=== PATIENT | female | born 1925 | race Caucasian/White ===

== ENCOUNTER 2017-05-16 11:26 | Inpatient (IN) | payer MEDICARE, OTHER ==
[2017-05-16] MEDS ORDERED: RX INFO: IV CONTRAST WAS GIVEN 1 EACH MISC MISCELLANE PRN (12:02)
[2017-05-16] MEDS ORDERED: SODIUM CHLORIDE 0.9% 1,000 ML IV STA (12:02)
[2017-05-16] MEDS ORDERED: ONDANSETRON 4 MG/2 ML VIAL IVP STA (12:02)
[2017-05-16] MEDS: HYDROmorphone 0.5 MG/0.5 ML SYRINGE IVP STA ×2 (12:18→13:02)
[2017-05-16 12:35] LABS: Basophils % (A) 0 %; CH 28.2; CHCM 32.5; Calcium 9.6 mg/dL (8.4-10.2); Eosinophils # (A) 0.1 k/uL (0-0.7); Eosinophils % (A) 2 %; HDW 2.43; HGB 13.4 gm/dL (11.4-16.0); Luc # (Auto) 0.14; Luc % (Auto) 2; Lymphocytes # (A) 2.8 k/uL (1.0-4.8); Lymphocytes % (A) 37 %; MCH 27.7 pg (25.0-35.0); MCHC 31.9 g/dL (31.0-37.0); MCV 87.1 fL (80.0-100.0); Mean Platelet Volume 8.4; Monocytes # (A) 0.6 k/uL (0-1.0); Monocytes % (A) 7 %; Neutrophils # (A) 4.1 k/uL (1.3-7.7); Neutrophils % (A) 53 %; Potassium 4.3 mmol/L (3.5-5.1); RBC 4.83 m/uL (3.80-5.40); RDW 15.5 % (11.5-15.5); Total Bilirubin 0.3 mg/dL (0.2-1.3); Total Protein 7.2 g/dL (6.3-8.2); WBC 7.8 k/uL (3.8-10.6); WBC (Perox) 7.82
[2017-05-16 12:36] LABS: INR 1.1 (<1.2); Prothrombin Time 10.6 sec (9.0-12.0)
[2017-05-16] MEDS ORDERED: HYDROmorphone 1 MG/ML 1 ML SYRINGE IVP STA (12:48)
[2017-05-16] MEDS ORDERED: LORazepam 2 MG/ML INJ IV STA (12:56)
[2017-05-16 14:30] LABS: Amorphous Sediment,Urine Occasional /hpf; Appearance,Urine Cloudy (Clear); Bacteria,Urine Many /hpf; Bilirubin,Urine Negative (Negative); Glucose,Urine (UA) Negative (Negative); Granular Casts,Urine 17 /lpf (0); Ketones,Urine 1+ (Negative); Leukocyte Esterase,Urine Large (Negative); Nitrite,Urine Positive (Negative); PH, Urine 7.5 (5.0-8.0); Particle Count 86969; Protein,Urine Trace (Negative); Specific Gravity,Urine 1.016 (1.001-1.035); Squamous Epithelial Cell,Urine 1 /hpf (0-4); UA Billing (MACRO vs. MICRO) MICRO; Urobilinogen,Urine <2.0 mg/dL (<2.0); WBC,Urine 101 /hpf (0-5)
--- NOTE | 2017-05-16 14:34 | CT ---
EXAMINATION TYPE: CT abdomen pelvis w con DATE OF EXAM: 05/16/2017 COMPARISON: NONE HISTORY: Abdominal pain CT DLP: 1241.90 mGycm CONTRAST: CT scan of the abdomen and pelvis is performed with Oral Contrast and with IV Contrast, patient injec scooter with 100 ml mL of Omnipaque 300. FINDINGS: LUNG BASES-: No infiltrate. Moderate fixed hiatal hernia. Nonspecific nodule measuring 4 mm right l ower lobe. LIVER/GB: Cholecystectomy clips are in place. No space occupying hepatic lesion. Biliary tree is o f normal caliber. PANCREAS: No inflammation. No distinct mass. SPLEEN: No splenic enlargement. No lesion seen. ADRENALS: No nodule. No thickening. KIDNEYS/BLADDER: No hydronephrosis. No nephrolithiasis. 2.5 cm right mid renal cyst. Urinary bladd er grossly unremarkable. BOWEL: Normal appendix. Normal bowel caliber. No inflammation. GENITAL ORGANS: Enlarging right ovarian cystic lesion measuring 3.8 cm currently versus 1.7 cm previ ously. Uterus and left ovary are unremarkable. LYMPH NODES: No greater than 1cm abdominal or pelvic lymph nodes are appreciated. AORTA: No significant abnormality. OSSEOUS STRUCTURES: No significant abnormality is seen. OTHER: No significant additional abnormality is seen. IMPRESSION: 1. Moderate fixed hiatal hernia again noted. 2. Stable right ovarian cyst.. 3. Enlarging right ovarian cystic lesion measuring 3.8 cm is nonspecific.
[2017-05-16] MEDS ORDERED: cefTRIAXone IN SWFI 1,000 MG/10 ML SYRINGE IVP STA (15:11)
--- NOTE | 2017-05-16 15:19 | ED ---
Abdominal Pain HPI - General Chief Complaint: Abdominal Pain Stated Complaint: Abd Pain Time Seen by Provider: 05/16/17 11:54 Source: EMS Mode of arrival: EMS Limitations: no limitations - History of Present Illness Initial Comments: This 89-year-old white female presents by EMS from the [facility] with her 2 daughters. She apparently was complaining of severe abdominal pain this morning. She also apparently had some right flank pain. The patient is demented and we're unable to get any history from her. All history obtained per [facility] records and daughters. She apparently was in significant distress. There is no known fevers. There is no known nausea vomiting or diarrhea. She apparently has never had similar symptoms in the past. She normally is incontinent of urine. History is somewhat limited due to the dementia. - Related Data Home Medications Medication Instructions Recorded Confirmed Benazepril HCl [Lotensin] 40 mg PO DAILY 01/16/15 05/16/17 amLODIPine [Norvasc] 5 mg PO DAILY 01/16/15 05/16/17 Acetaminophen Tab [Tylenol Tab] 650 mg PO Q8H PRN 11/16/15 05/16/17 Bisacodyl [Dulcolax] 10 mg RECTAL DAILY PRN 11/16/15 05/16/17 Famotidine [Pepcid] 20 mg PO DAILY@1700 11/16/15 05/16/17 LORazepam [Ativan] 0.25 mg PO BID 11/16/15 05/16/17 Loratadine [Claritin] 10 mg PO DAILY PRN 11/16/15 05/16/17 Metoprolol Succinate [Toprol XL] 12.5 mg PO DAILY 11/16/15 05/16/17 Albuterol Nebulized [Ventolin 2.5 mg INHALATION Q6H PRN 05/16/17 05/16/17 Nebulized] Ammonium Lactate Cream [Lac-Hydrin 1 applic TOPICAL DAILY PRN 05/16/17 05/16/17 12% Cream] Aspirin EC [Ecotrin Low Dose] 81 mg PO DAILY@1700 05/16/17 05/16/17 Ferrous Sulfate [Feosol] 325 mg PO DAILY@1700 05/16/17 05/16/17 LORazepam [Ativan] 0.5 mg PO Q8H PRN 05/16/17 05/16/17 Levothyroxine Sodium [Synthroid] 50 mcg PO DAILY 05/16/17 05/16/17 Loperamide HCl [Imodium A-D] 4 mg PO BID PRN 05/16/17 05/16/17 Meloxicam [Mobic] 15 mg PO HS 05/16/17 05/16/17 Na Phos,M-B/Na Phos,Di-Ba [Fleet 133 ml RECTAL DAILY PRN 05/16/17 05/16/17 Adult] QUEtiapine [SEROquel] 50 mg PO TID 05/16/17 05/16/17 Sennosides [Senna] 8.6 mg PO BID 05/16/17 05/16/17 guaiFENesin [guaiFENesin Oral 200 mg PO Q4H PRN 05/16/17 05/16/17 Solution] Allergies Allergy/AdvReac Type Severity Reaction Status Date / Time No Known Allergies Allergy Verified 05/16/17 11:43 Review of Systems ROS Statement: Those systems with pertinent positive or pertinent negative responses have been documented in the HPI. ROS Other: All systems not noted in ROS Statement are negative. Past Medical History Past Medical History: Hyperlipidemia, Hypertension, Thyroid Disorder History of Any Multi-Drug Resistant Organisms: None Reported Past Surgical History: Cholecystectomy Past Anesthesia/Blood Transfusion Reactions: No Reported Reaction Past Psychological History: No Psychological Hx Reported Smoking Status: Former smoker Past Alcohol Use History: None Reported Past Drug Use History: None Reported - Past Family History Sister(s) Family Medical History: Myocardial Infarction ([place]) Additional Family Medical History / Comment(s): in her 60's of [place] General Exam - General Exam Comments Initial Comments: GENERAL: The patient is well nourished and well hydrated. VITAL SIGNS: Heart rate, blood pressure, respiratory rate reviewed as recorded in nurse's notes. EYES: Pupils are round and reactive. Extraocular movements are intact. No conjunctival / lid redness or swelling. ENT: No external evidence of injury, swelling, or ecchymosis. Airway is patent. Throat is clear. NECK: Nontender. No swelling or evidence of injury. No subcutaneous emphysema. Trachea is midline. No thyroid mass. HEART: Regular rate and rhythm. Good peripheral pulses. LUNGS/CHEST: Breath sounds clear and equal bilaterally. No rales, rhonchi, or wheezes. No ecchymosis, subcutaneous emphysema, or tenderness. ABDOMEN: There is diffuse tenderness noted to the abdomen. There is some slight tenderness noted to the right flank. No palpable masses or organomegaly. No peritoneal signs. No abdominal wall swelling or ecchymosis. EXTREMITIES: No extremity tenderness. Normal muscle tone and function. No thoracolumbar tenderness. NEUROLOGIC: Sensation is grossly intact. Cranial nerve exam reveals face is symmetrical, tongue is midline. Patient is demented. SKIN: No abrasions or ecchymosis is noted. No induration or masses noted. PSYCHIATRIC: Alert and in moderate distress Limitations: no limitations Course Vital Signs 05/16/17 05/16/17 11:27 13:39 Temperature 97.0 F L Pulse Rate 75 88 Respiratory 20 18 Rate Blood Pressure 199/74 180/76 O2 Sat by Pulse 95 90 L Oximetry Medical Decision Making - Medical Decision Making The patient was seen and examined. All diagnostics were reviewed. The patient had an EKG done and shows a normal sinus rhythm at a rate of 85. There is nonspecific ST T-wave changes mostly noted in the lateral leads. The VA intervals 158, QRS duration is 82, and the QTc interval is 335. The patient does receive an IV as well as intravenous Dilaudid for pain. She still quite agitated and receives some Ativan with alleviation of the agitation. The urinalysis came back showing evidence of a urinary tract infection. The laboratory overall is fairly unremarkable. The patient had a computed tomography scan of the abdomen and pelvis was just does show an increasing right ovarian cyst at 3.7 cm but no other acute processes. The patient was having some right flank pain as well. Is felt as though she may have a pyelonephritis as well. She also was having some significant pain and it is felt as though she benefit from admission to the hospital and IV antibiotics. She started on some Rocephin. Case is discussed with internal medicine and they 're agreeable to admission. - Lab Data Result diagrams: 05/16/17 11:49 05/16/17 11:49 Lab Results 05/16/17 05/16/17 05/16/17 Range/Units 11:49 11:49 11:49 WBC 7.8 (3.8-10.6) k/uL RBC 4.83 (3.80-5.40) m/uL Hgb 13.4 (11.4-16.0) gm/dL Hct 42.0 (34.0-46.0) % MCV 87.1 (80.0-100.0) fL MCH 27.7 (25.0-35.0) pg MCHC 31.9 (31.0-37.0) g/dL RDW 15.5 (11.5-15.5) % Plt Count 293 (150-450) k/uL Neutrophils % 53 % Lymphocytes % 37 % Monocytes % 7 % Eosinophils % 2 % Basophils % 0 % Neutrophils # 4.1 (1.3-7.7) k/uL Lymphocytes # 2.8 (1.0-4.8) k/uL Monocytes # 0.6 (0-1.0) k/uL Eosinophils # 0.1 (0-0.7) k/uL Basophils # 0.0 (0-0.2) k/uL PT 10.6 (9.0-12.0) sec INR 1.1 (<1.2) APTT 22.0 (22.0-30.0) sec Sodium 142 (137-145) mmol/L Potassium 4.3 (3.5-5.1) mmol/L Chloride 110 H (98-107) mmol/L Carbon Dioxide 21 L (22-30) mmol/L Anion Gap 11 mmol/L BUN 23 H (7-17) mg/dL Creatinine 1.09 H (0.52-1.04) mg/dL Est GFR (MDRD) Af Amer 57 (>60 ml/min/1.73 sqM) Est GFR (MDRD) Non-Af 47 (>60 ml/min/1.73 sqM) Glucose 96 (74-99) mg/dL Plasma Lactic Acid Les (0.7-2.0) mmol/L Calcium 9.6 (8.4-10.2) mg/dL Total Bilirubin 0.3 (0.2-1.3) mg/dL AST 36 (14-36) U/L ALT 47 (9-52) U/L Alkaline Phosphatase 98 (38-126) U/L Total Protein 7.2 (6.3-8.2) g/dL Albumin 3.9 (3.5-5.0) g/dL Amylase 39 (30-110) U/L Lipase 86 (23-300) U/L Urine Color Urine Appearance (Clear) Urine pH (5.0-8.0) Ur Specific [place] (1.001-1.035) Urine Protein (Negative) Urine Glucose (UA) (Negative) Urine Ketones (Negative) Urine Blood (Negative) Urine Nitrite (Negative) Urine Bilirubin (Negative) Urine Urobilinogen (<2.0) mg/dL Ur Leukocyte Esterase (Negative) Urine WBC (0-5) /hpf Urine WBC Clumps (None) /hpf Ur Squamous Epith Cells (0-4) /hpf Amorphous Sediment (None) /hpf Urine Bacteria (None) /hpf Granular Casts (0) /lpf 05/16/17 05/16/17 Range/Units 12:39 14:15 WBC (3.8-10.6) k/uL RBC (3.80-5.40) m/uL Hgb (11.4-16.0) gm/dL Hct (34.0-46.0) % MCV (80.0-100.0) fL MCH (25.0-35.0) pg MCHC (31.0-37.0) g/dL RDW (11.5-15.5) % Plt Count (150-450) k/uL Neutrophils % % Lymphocytes % % Monocytes % % Eosinophils % % Basophils % % Neutrophils # (1.3-7.7) k/uL Lymphocytes # (1.0-4.8) k/uL Monocytes # (0-1.0) k/uL Eosinophils # (0-0.7) k/uL Basophils # (0-0.2) k/uL PT (9.0-12.0) sec INR (<1.2) APTT (22.0-30.0) sec Sodium (137-145) mmol/L Potassium (3.5-5.1) mmol/L Chloride (98-107) mmol/L Carbon Dioxide (22-30) mmol/L Anion Gap mmol/L BUN (7-17) mg/dL Creatinine (0.52-1.04) mg/dL Est GFR (MDRD) Af Amer (>60 ml/min/1.73 sqM) Est GFR (MDRD) Non-Af (>60 ml/min/1.73 sqM) Glucose (74-99) mg/dL Plasma Lactic Acid Les 1.5 (0.7-2.0) mmol/L Calcium (8.4-10.2) mg/dL Total Bilirubin (0.2-1.3) mg/dL AST (14-36) U/L ALT (9-52) U/L Alkaline Phosphatase (38-126) U/L Total Protein (6.3-8.2) g/dL Albumin (3.5-5.0) g/dL Amylase (30-110) U/L Lipase (23-300) U/L Urine Color Yellow Urine Appearance Cloudy H (Clear) Urine pH 7.5 (5.0-8.0) Ur Specific [place] 1.016 (1.001-1.035) Urine Protein Trace H (Negative) Urine Glucose (UA) Negative (Negative) Urine Ketones 1+ H (Negative) Urine Blood Negative (Negative) Urine Nitrite Positive H (Negative) Urine Bilirubin Negative (Negative) Urine Urobilinogen <2.0 (<2.0) mg/dL Ur Leukocyte Esterase Large H (Negative) Urine WBC 101 H (0-5) /hpf Urine WBC Clumps Occasional H (None) /hpf Ur Squamous Epith Cells 1 (0-4) /hpf Amorphous Sediment Occasional H (None) /hpf Urine Bacteria Many H (None) /hpf Granular Casts 17 (0) /lpf Disposition Clinical Impression: UTI (urinary tract infection), Pyelonephritis, Right flank pain, Abdominal pain , Ovarian cyst, Hypertension, Dementia Disposition: ADMITTED IP TO THIS [facility] Condition: Fair Time of Disposition: 15:22 Decision Date: 05/16/17 Decision Time: 15:22
[2017-05-16] MEDS ORDERED: hydrALAZINE HCL 20 MG/ML 1 ML VIAL IVP STA (15:25)
[2017-05-16] MEDS ORDERED: LORazepam 2 MG/ML INJ IV PRN (15:26)
[2017-05-16] MEDS ORDERED: HYDROmorphone 0.5 MG/0.5 ML SYRINGE IVP PRN (15:26)
[2017-05-16] MEDS ORDERED: ACETAMINOPHEN TAB 325 MG TAB PO PRN (15:26)
[2017-05-16] MEDS ORDERED: ONDANSETRON 4 MG/2 ML VIAL IVP PRN (15:26)
[2017-05-16] MEDS ORDERED: NALOXONE 0.4 MG/ML 1 ML VIAL IV PRN (15:26)
[2017-05-16] MEDS ORDERED: NA PHOS,M-B/NA PHOS,DI-BA 133 ML ENEMA RECTAL PRN (15:30)
[2017-05-16] MEDS ORDERED: LOPERAMIDE 2 MG CAP PO PRN (15:30)
[2017-05-16] MEDS ORDERED: BISACODYL 10 MG SUPP RECTAL PRN (15:30)
[2017-05-16] MEDS ORDERED: guaiFENesin SYRUP 100MG/5ML 200 MG/10 ML CUP PO PRN (15:30)
[2017-05-16] MEDS ORDERED: AMMONIUM LACTATE 12% CREAM 140 GM TUBE TOPICAL PRN (15:30)
[2017-05-16] MEDS ORDERED: ALBUTEROL NEBULIZED 2.5 MG/3 ML INHALATION PRN (15:30)
[2017-05-16] MEDS ORDERED: LORATADINE 10 MG TAB PO PRN (15:30)
[2017-05-16] MEDS: ASPIRIN 81 MG PO SCH (17:26)
[2017-05-16] MEDS: QUEtiapine 50 MG TAB PO SCH ×2 (17:26→22:09)
[2017-05-16] MEDS: FERROUS SULFATE 325 MG TAB PO SCH ×2 (17:26→17:33)
--- NOTE | 2017-05-16 20:39 | HP ---
HISTORY AND PHYSICAL PRESENTING COMPLAINT: Abdominal pain. HISTORY OF PRESENTING COMPLAINT: This is an 89-year-old patient of Dr. Franks, resident of [facility], unable to give much of a history because of underlying dementia. Chronic stable medical conditions include hiatal hernia, hyperlipidemia, hypertension, hypothyroid, emphysema, duodenal ulcer. The patient was [facility] the [facility], somewhat restless, complaining of some abdominal pain. Really cannot get more details. The patient has 2 daughters who just left before I came in. The patient has got a [place] catheter. he patient's UA had come back infected appearing. REVIEW OF SYSTEMS: Cannot be done because of underlying confusion. PAST MEDICAL HISTORY: Dementia, hiatal hernia, hypertension, hyperlipidemia, hypothyroid, emphysema, duodenal ulcer. PAST SURGICAL HISTORY: Cholecystectomy. SOCIAL HISTORY: Resident of [facility]. She requires two-personal transfer to wheelchair. The patient has smoked for 45 years, stopped about 20 to 25 years ago. FAMILY HISTORY: History of myocardial infarction. HOME MEDICATIONS: 1. Guaifenesin 200 mg p.o. every 4 p.r.n. 2. Norvasc 5 mg p.o. daily. 3. Senna 8.6 mg p.o. b.i.d. 4. 50 mg p.o. t.i.d. 5. Fleet Adult p.r.n. 6. Toprol-XL 12.5 p.o. daily. 7. Mobic 50 mg p.o. at bedtime. 8. Claritin 10 mg p.o. daily p.r.n. 9. Imodium 4 mg p.o. b.i.d. p.r.n. 10.Synthroid 50 mcg p.o. daily. 11.Ativan 0.5 p.o. every 8 hours p.r.n. and 0.25 p.o. b.i.d. 12.Iron 325 p.o. daily at 5 p.m. 13.Pepcid 20 mg p.o. daily at 5 p.m. 14.Lotensin 40 mg p.o. daily. 15.Aspirin 81 mg p.o. daily. 16.Lac-Hydrin 12% topical daily p.r.n. 17.Ventolin 2.5 every 6 hours p.r.n. 18.Tylenol p.r.n. ALLERGIES: None. PHYSICAL EXAMINATION: Vital signs on presentation, temperature 97, pulse 75, respiration 20, blood pressure 180/76, pulse ox 85% on room air, repeat 90% on 2 L and then 96% 2 L. GENERAL APPEARANCE: Well-built. Restless in bed. EYES: Pupils equal. Conjunctivae normal. HEENT: Oral cavity dry mucous membrane. NECK: JVD not raised. Mass not palpable. RESPIRATORY: Effort normal. Lungs are clear. CARDIOVASCULAR: 1st and 2nd sounds normal. No edema. ABDOMEN: Mild diffuse some tenderness. No guarding or rigidity. Liver and spleen not palpable. LYMPHATIC: No lymph nodes palpable in neck or axillae. PSYCHIATRY: The patient knows her name but rather delirious. NEUROLOGIC: Pupils equal. No facial asymmetry. Moving all 4 limbs. INVESTIGATIONS: White count 7.8, hemoglobin 10.4, potassium 4.3, BUN 23, creatinine 1.09. UA positive for leukocyte esterase, WBC. CT scan of the abdomen and pelvis unremarkable. ASSESSMENT: 1. Acute urinary tract infection, pyelonephritis is possible, causing acute delirium. 2. Alzheimer's dementia, late onset type. 3. Hiatal hernia. 4. Hyperlipidemia. 5. Hypertension. 6. Hypothyroid. 7. Chronic obstructive pulmonary disease in an ex-smoker. PLAN: Patient started on antibiotic in form of ceftriaxone. Home medications are resumed. Getting IV fluids. No family is at the bedside. Even though the abdomen does not appear to be surgical we will get a surgical opinion to make sure nothing else is brewing. Repeat labs in the morning. MMODL / IJN: [id number] /
--- NOTE | 2017-05-16 21:49 | P.GSCN ---
History of Present Illness Consult date: 05/16/17 Requesting physician: Benton Dang History of present illness: CHIEF COMPLAINT: Abdominal pain. HISTORY OF PRESENT ILLNESS: The patient is 89-year-old female who is brought in by her family members for complaint of severe abdominal pain. At the time of my evaluation, the patient was minimally verbal and disoriented. Much history is obtained via her chart. She had a CT of the abdomen and pelvis demonstrating no bowel obstruction. She also did not report any significant abdominal pain since admission. Again additional history is obtained by her nurse as well. PAST MEDICAL HISTORY: See list. PAST SURGICAL HISTORY: See list. CURRENT MEDICATIONS: See list. ALLERGIES: See list. SOCIAL HISTORY: See list. FAMILY HISTORY: See list. REVIEW OF ORGAN SYSTEMS: CONSTITUTIONAL: No fever or chills. HEENT: No trouble with vision, hearing or nosebleeds. LYMPHATIC: No any lumps and bumps around the neck. ENDOCRINE: Has thyroid disorders. No blood sugar glucose intolerance. RESPIRATORY: No shortness of breath. No dyspnea on exertion. CARDIOVASCULAR: No current history of chest pain with exertion. No palpitations. GASTROINTESTINAL: No reports of diarrhea since admission. GENITOURINARY: Previous history of urinary tract infection. MUSCULOSKELETAL: Has osteoarthritis including pain along the joints. NEUROLOGIC: No seizure disorders or headaches. PSYCHIATRIC: Denies any depression or suicidal ideation. HEMATOLOGIC: Denies any abnormal bleeding or bruising. PHYSICAL EXAMINATION: GENERAL: Well developed who is disoriented and fidgeting in bed. HEENT: No sclera icterus. Extraocular movements grossly intact. Moist buccal mucosa. Head is atraumatic, normocephalic. Hears conversational speech. No nasal drainage. NECK: No rigidity. Range of motion within normal limits. CHEST: Non-labored respirations and equal bilateral excursions. CARDIOVASCULAR: Regular rate and rhythm. Palpable 2+ radial pulses. ABDOMEN: Soft. No peritonitis. MUSCULOSKELETAL: No clubbing, cyanosis. NEUROLOGIC: No focal or lateralizing signs. PSYCH: Oriented to person. Disoriented otherwise. SKIN: Well perfused. Good skin turgor. LABS: Reviewed. STUDIES: CT of the abdomen and pelvis reviewed demonstrating incidental finding of hiatal hernia. No free air. Separately ovarian cyst identified. ASSESSMENT: 1. Generalized abdominal pain. 2. Lower urinary tract infection. 3. Disorientation. 4. Diaphragmatic hiatal hernia, large. PLAN: 1. No acute abdomen or surgical intervention at this time. 2. She has a large hiatal hernia which no acute surgical intervention needed. 3. Treatment of urinary tract infection and advised. Thank you very much for allowing me to participate in the care of your patient. Past Medical History Past Medical History: Dementia, GERD/Reflux, Hyperlipidemia, Hypertension, Thyroid Disorder Additional Past Medical History / Comment(s): past esophagitis,small duodenal ulcer,hiatal hernia, uti, alzheimers disease and insomnia, anxiety History of Any Multi-Drug Resistant Organisms: None Reported Past Surgical History: Cholecystectomy Additional Past Surgical History / Comment(s): egd Past Anesthesia/Blood Transfusion Reactions: No Reported Reaction Smoking Status: Former smoker - Past Family History Father Family Medical History: Myocardial Infarction ([place]) Mother Family Medical History: Diabetes Mellitus Sister(s) Family Medical History: Myocardial Infarction ([place]) Additional Family Medical History / Comment(s): in her 60's of [place] Medications and Allergies Home Medications Medication Instructions Recorded Confirmed Type Benazepril HCl [Lotensin] 40 mg PO DAILY 01/16/15 05/16/17 History amLODIPine [Norvasc] 5 mg PO DAILY 01/16/15 05/16/17 History Acetaminophen Tab [Tylenol Tab] 650 mg PO Q8H PRN 11/16/15 05/16/17 History Bisacodyl [Dulcolax] 10 mg RECTAL DAILY PRN 11/16/15 05/16/17 History Famotidine [Pepcid] 20 mg PO DAILY@1700 11/16/15 05/16/17 History LORazepam [Ativan] 0.25 mg PO BID 11/16/15 05/16/17 History Loratadine [Claritin] 10 mg PO DAILY PRN 11/16/15 05/16/17 History Metoprolol Succinate [Toprol XL] 12.5 mg PO DAILY 11/16/15 05/16/17 History Albuterol Nebulized [Ventolin 2.5 mg INHALATION Q6H PRN 05/16/17 05/16/17 History Nebulized] Ammonium Lactate Cream [Lac-Hydrin 1 applic TOPICAL DAILY PRN 05/16/17 05/16/17 History 12% Cream] Aspirin EC [Ecotrin Low Dose] 81 mg PO DAILY@1700 05/16/17 05/16/17 History Ferrous Sulfate [Feosol] 325 mg PO DAILY@1700 05/16/17 05/16/17 History LORazepam [Ativan] 0.5 mg PO Q8H PRN 05/16/17 05/16/17 History Levothyroxine Sodium [Synthroid] 50 mcg PO DAILY 05/16/17 05/16/17 History Loperamide HCl [Imodium A-D] 4 mg PO BID PRN 05/16/17 05/16/17 History Meloxicam [Mobic] 15 mg PO HS 05/16/17 05/16/17 History Na Phos,M-B/Na Phos,Di-Ba [Fleet 133 ml RECTAL DAILY PRN 05/16/17 05/16/17 History Adult] QUEtiapine [SEROquel] 50 mg PO TID 05/16/17 05/16/17 History Sennosides [Senna] 8.6 mg PO BID 05/16/17 05/16/17 History guaiFENesin [guaiFENesin Oral 200 mg PO Q4H PRN 05/16/17 05/16/17 History Solution] Allergies Allergy/AdvReac Type Severity Reaction Status Date / Time No Known Allergies Allergy Verified 05/16/17 11:43 Surgical - Exam Vital Signs Temp Pulse Resp BP Pulse Ox 97.0 F L 75 20 199/74 95 05/16/17 11:27 05/16/17 11:27 05/16/17 11:27 05/16/17 11:27 05/16/17 11:27 Results - Labs 05/16/17 11:49 05/16/17 11:49 Abnormal Lab Results - Last 24 Hours (Table) 05/16/17 05/16/17 Range/Units 11:49 14:15 Chloride 110 H (98-107) mmol/L Carbon Dioxide 21 L (22-30) mmol/L BUN 23 H (7-17) mg/dL Creatinine 1.09 H (0.52-1.04) mg/dL Urine Appearance Cloudy H (Clear) Urine Protein Trace H (Negative) Urine Ketones 1+ H (Negative) Urine Nitrite Positive H (Negative) Ur Leukocyte Esterase Large H (Negative) Urine WBC 101 H (0-5) /hpf Urine WBC Clumps Occasional H (None) /hpf Amorphous Sediment Occasional H (None) /hpf Urine Bacteria Many H (None) /hpf Diabetes panel 05/16/17 Range/Units 11:49 Sodium 142 (137-145) mmol/L Potassium 4.3 (3.5-5.1) mmol/L Chloride 110 H (98-107) mmol/L Carbon Dioxide 21 L (22-30) mmol/L BUN 23 H (7-17) mg/dL Creatinine 1.09 H (0.52-1.04) mg/dL Glucose 96 (74-99) mg/dL Calcium 9.6 (8.4-10.2) mg/dL AST 36 (14-36) U/L ALT 47 (9-52) U/L Alkaline Phosphatase 98 (38-126) U/L Total Protein 7.2 (6.3-8.2) g/dL Albumin 3.9 (3.5-5.0) g/dL Calcium panel 05/16/17 Range/Units 11:49 Calcium 9.6 (8.4-10.2) mg/dL Albumin 3.9 (3.5-5.0) g/dL Pituitary panel 05/16/17 Range/Units 11:49 Sodium 142 (137-145) mmol/L Potassium 4.3 (3.5-5.1) mmol/L Chloride 110 H (98-107) mmol/L Carbon Dioxide 21 L (22-30) mmol/L BUN 23 H (7-17) mg/dL Creatinine 1.09 H (0.52-1.04) mg/dL Glucose 96 (74-99) mg/dL Calcium 9.6 (8.4-10.2) mg/dL Adrenal panel 05/16/17 Range/Units 11:49 Sodium 142 (137-145) mmol/L Potassium 4.3 (3.5-5.1) mmol/L Chloride 110 H (98-107) mmol/L Carbon Dioxide 21 L (22-30) mmol/L BUN 23 H (7-17) mg/dL Creatinine 1.09 H (0.52-1.04) mg/dL Glucose 96 (74-99) mg/dL Calcium 9.6 (8.4-10.2) mg/dL Total Bilirubin 0.3 (0.2-1.3) mg/dL AST 36 (14-36) U/L ALT 47 (9-52) U/L Alkaline Phosphatase 98 (38-126) U/L Total Protein 7.2 (6.3-8.2) g/dL Albumin 3.9 (3.5-5.0) g/dL Assessment and Plan (1) Abdominal pain Current Visit: Yes Status: Acute Code(s): R10.9 - UNSPECIFIED ABDOMINAL PAIN SNOMED Code(s): 08004438 (2) Hypertension Current Visit: Yes Status: Acute Code(s): I10 - ESSENTIAL (PRIMARY) HYPERTENSION SNOMED Code(s): 26466051 (3) Ovarian cyst Current Visit: Yes Status: Acute Code(s): N83.209 - UNSPECIFIED OVARIAN CYST , UNSPECIFIED SIDE SNOMED Code(s): 82616985 (4) Pyelonephritis Current Visit: Yes Status: Acute Code(s): N12 - TUBULO-INTERSTITIAL NEPHRITIS, NOT SPCF ACUTE OR CHRONIC SNOMED Code(s): 20337383 (5) Urinary tract infection Current Visit: Yes Status: Acute Code(s): N39.0 - URINARY TRACT INFECTION, SITE NOT SPECIFIED SNOMED Code(s): 99161485
[2017-05-16] MEDS: LORazepam 0.5 MG TAB PO SCH (22:08)
[2017-05-16] MEDS: MELOXICAM 7.5 MG TAB PO SCH (22:09)
[2017-05-16] MEDS: SENNOSIDES 8.6 MG TAB PO SCH (22:09)
[2017-05-17] MEDS: LEVOTHYROXINE 50 MCG TAB PO SCH (06:22)
[2017-05-17] MEDS: LISINOPRIL 20 MG TAB PO SCH (07:35)
[2017-05-17] MEDS: LORazepam 0.5 MG TAB PO SCH ×3 (07:35→20:48)
[2017-05-17] MEDS: amLODIPine 5 MG TAB PO SCH (07:35)
[2017-05-17] MEDS: SENNOSIDES 8.6 MG TAB PO SCH ×3 (07:36→20:49)
[2017-05-17] MEDS: METOPROLOL SUCCINATE (ER) 25 MG TAB.ER.24H PO SCH (07:36)
[2017-05-17] MEDS: QUEtiapine 50 MG TAB PO SCH ×4 (07:36→20:49)
[2017-05-17] MEDS: PANTOPRAZOLE 40 MG/10 ML VIAL IV SCH (07:36)
[2017-05-17] MEDS ORDERED: ENOXAPARIN 40 MG/0.4 ML SYRINGE SQ SCH ×2 (09:00)
--- NOTE | 2017-05-17 11:00 | P.PN ---
<Jocelyn Ivoryyolis Thacker - Last Filed: 05/17/17 10:50> Subjective Progress Note Date: 05/17/17 89-year-old female seen and examined at bedside patient appears in no acute distress. Patient is oriented to self only. No family at bedside. Patient is being seen at the request of the attending for an abdominal eval in a patient who presented with severe abdominal pain. At the time of the evaluation this morning patient is not indicating any abdominal discomfort no facial grimacing with palpitation to the abdominal wall. Patient's CAT scan of the abdomen pelvis showed no evidence of a bowel obstruction Objective - Vital Signs Vital signs: Vital Signs Temp 96.7 F L 05/17/17 07:00 Pulse 70 05/17/17 07:00 Resp 18 05/17/17 07:00 BP 124/86 05/17/17 07:00 Pulse Ox 94 L 05/17/17 07:00 Intake & Output 05/16/17 05/17/17 05/17/17 18:59 06:59 18:59 Output Total 125 Balance -125 Weight 78.471 kg Output: Urine 125 Other: Voiding Method Indwelling Catheter Indwelling Catheter # Voids 1 - Exam physical exam 89-year-old female resting in bed is uncooperative oriented to self only Lungs diminished at the bases otherwise adequate air movement Heart S1-S2 audible and regular Abdomen soft no facial grimacing with palpitation to the abdominal wall not distended nontender no stool Extremities no edema - Labs CBC & Chem 7: 05/16/17 11:49 05/16/17 11:49 Labs: Abnormal Lab Results - Last 24 Hours (Table) 05/16/17 05/16/17 Range/Units 11:49 14:15 Chloride 110 H (98-107) mmol/L Carbon Dioxide 21 L (22-30) mmol/L BUN 23 H (7-17) mg/dL Creatinine 1.09 H (0.52-1.04) mg/dL Urine Appearance Cloudy H (Clear) Urine Protein Trace H (Negative) Urine Ketones 1+ H (Negative) Urine Nitrite Positive H (Negative) Ur Leukocyte Esterase Large H (Negative) Urine WBC 101 H (0-5) /hpf Urine WBC Clumps Occasional H (None) /hpf Amorphous Sediment Occasional H (None) /hpf Urine Bacteria Many H (None) /hpf Assessment and Plan Assessment: impression Present on admission report of abdominal pain with a CAT scan of the abdomen pelvis showing a moderate fixed hiatal hernia CAT scan abdomen and pelvis showing an enlarged right ovarian cyst Baseline dementia without behavioral disturbance debilitated chronic limited mobility wheelchair bedbound present on admission acute urinary tract infection Plan no evidence of an acute surgical abdomen we'll sign off and re-eval as needed continue with the current care per medicine defer to The above impression and plan of care have been discussed and directed by signing physician. Florecita Ivory nurse practitioner acting as scribe for signing physician. <Makayla Jasmine - Last Filed: 05/21/17 13:18> Objective - Vital Signs Vital signs: Vital Signs Temp 98.4 F 05/18/17 07:00 Pulse 67 05/18/17 08:00 Resp 19 05/18/17 08:00 BP 129/78 05/18/17 07:00 Pulse Ox 92 L 05/18/17 07:00 - Labs CBC & Chem 7: 05/18/17 08:53 05/18/17 08:53 Labs: Microbiology - Last 24 Hours (Table) 05/17/17 07:50 Blood Culture - Preliminary Blood No Growth after 96 hours Assessment and Plan (1) Abdominal pain Status: Acute Code(s): R10.9 - UNSPECIFIED ABDOMINAL PAIN SNOMED Code(s): 21111581 (2) Hypertension Status: Acute Code(s): I10 - ESSENTIAL (PRIMARY) HYPERTENSION SNOMED Code(s) : 29467720 (3) Ovarian cyst Status: Acute Code(s): N83.209 - UNSPECIFIED OVARIAN CYST, UNSPECIFIED SIDE SNOMED Code(s): 53955800 (4) Pyelonephritis Status: Acute Code(s): N12 - TUBULO-INTERSTITIAL NEPHRITIS, NOT SPCF ACUTE OR CHRONIC SNOMED Code(s): 54815598 (5) Urinary tract infection Status: Acute Code(s): N39.0 - URINARY TRACT INFECTION, SITE NOT SPECIFIED SNOMED Code(s): 88932190
[2017-05-17] MEDS: cefTRIAXone IN SWFI 1,000 MG/10 ML SYRINGE IVP SCH (12:46)
--- NOTE | 2017-05-17 13:11 | CDI ---
In responding to this query, please exercise your independent professional judgment. The [facility] Coding Staff and Clinical Documentation Specialists appreciate your assistance in clarifying documentation, maintaining compliance with coding guidelines, accurately documenting patients condition and capturing severity of illness. The fact that a question is asked does not imply that any particular answer is desired or expected. Communication forms are a method of clarifying documentation and are not made part of the Legal Health Record. Thank you in advance for your clarification. Last Revision, April 2015 Gerald Daly [address] [place] [address] Documentation Clarification Form Date: 05/17/2017 1:04:00 PM From: Ciara Murrell, ZEESHAN, CCDS Admit Date: 05/16/2017 3:26:00 PM Patient Name: Latrice Dudley Visit Number: [id number] Discharge Date: Dr. Benton Dang: Per the H/P documentation: The patient has got a Londono catheter, the patient's UA had come back infected appearing. Per the Surgical consult PN: the patient is also wheelchair & bedbound, from [place]. History/Risk factors: above. Clinical Indicators: Urinalysis: cloudy, trace protein, 1+ ketones, positive nitrite, large esterase , WBC 101. Lab results: BUN 23, Creatinine 1.09 Treatment: IV Dilaudid, IV Zofran, IV fluid 100, IV Ativan, IV Rocephin, IV Apresoline, IV Ativan In your professional opinion, can you please clarify the etiology of the UTI, if known? Londono catheter Suprapubic catheter UTI not related to catheter/urostomy Other condition, please specify Unable to determine If an infective organism is present, please specify cause and effect relationship if applicable. Please document in your progress notes and discharge summary in order to capture severity of illness and risk of mortality. Include clinical findings that support your diagnosis. FYI: Press F11 to launch patient chart MTDD
--- NOTE | 2017-05-17 14:49 | P.PN ---
Progress Note - Text Progress Note Date: 05/17/17 DATE OF SERVICE: 05/17/2017 PRESENTING COMPLAINT: Abdominal pain HISTORY OF PRESENT ILLNESS: 89-year-old female resident of a local longterm brought in for abdominal pain and restlessness. Patient does have dementia unable to get good details. Family at the bedside. Urinalysis revealed infection admitted for the same. INTERVAL HISTORY: 05/17/2017: Patient seen in follow-up, lying in bed appears comfortable. Alert to self, does not know where she is or why she is here. Calm and cooperative. He requires assistance to get up. Refused to eat any of her breakfast, however 100 % of her lunch was eaten with family at the bedside. Last BM prior to admission. REVIEW OF SYSTEMS: Done for constitutional ,cardiovascular, GI, pulmonary with relevant findings as above. CURRENT MEDICATIONS Tylenol, Norvasc 5 mg by mouth daily, aspirin 81 mg by mouth daily, Dulcolax 10 mg rectal daily when necessary, Rocephin 1000 g IV push daily, Lovenox 30 mg subcu daily, Synthroid 50 g by mouth daily, Zestril 40 mg by mouth daily, Imodium 4 mg by mouth twice a day when necessary, Claritin 10 mg by mouth daily when necessary. Mobitz 15 mg by mouth at bedtime, Toprol-XL 12.5 mg by mouth daily, Protonix 40 mg IV daily, Seroquel 50 mg by mouth 3 times a day, Senokot 8.6 g by mouth twice a day, PHYSICAL EXAM VITAL SIGNS: Temperature 96.7, pulse 70, respiratory rate 18, blood pressure 128/86, oxygen saturation 94% on room air. GENERAL APPEARANCE: Lying in bed, not in distress. EYES: Pupils equal. Conjunctiva normal. NECK: JVD not raised. Mass not palpable. RESPIRATORY: Respiratory effort normal. Lungs clear to auscultation. CARDIOVASCULAR: First and second sounds normal. No edema. ABDOMEN: Soft. Liver and spleen not palpable. No tenderness. No mass palpable. PSYCHIATRY: Alert and oriented x1, able to answer simple straightforward questions. Mood and affect somewhat confused. INVESTIGATIONS: Labs: None new ASSESSMENT: -Acute urinary tract infection pyelonephritis is possible, causing acute delirium. -Alzheimer's dementia, late onset type. -Hiatal hernia -Hyperlipidemia. -Essential hypertension. -Hypothyroidism. -Chronic obstructive pulmonary disease in ex-smoker. PLAN: Continue current antibiotic therapy, patient is responding well. Continue IV fluids. Abdomen does not appear to be an acute surgical abdomen per surgery. Plan of care discussed at the bedside with patient and family they're in agreement. We will follow closely. [employer] statement: Patient was seen and examined by nurse practitioner Rosa Elena Toro and all elements of the case discussed with attending Dr. Dang
--- NOTE | 2017-05-17 15:46 | PN ---
PROGRESS NOTE DATE OF SERVICE: 05/17/17 ATTENDING NOTE: Patient seen and examined by me. I discussed with nurse practitioner, Ms. Toro. The patient presented with acute UTI with acute delirium. Doing better today. Answering simple questions. Daughter is at the bedside. Started to eat a bit better. PHYSICAL EXAMINATION: Afebrile, blood pressure 124/86. The patient's urine culture from 05/16/17 growing gram-negative bacilli. ASSESSMENT: Acute urinary tract infection along with pyelonephritis causing acute delirium present on admission with clinical response growing Gram-negative bacilli on culture from 05/16/17. PLAN: Continue with IV ceftriaxone. The patient responding. Talked to the daughter at the bedside. Hoping patient can return to the [facility] tomorrow. MMSOCORROL / IJN: [id number] /
[2017-05-17] MEDS: FERROUS SULFATE 325 MG TAB PO SCH (16:52)
[2017-05-17] MEDS: ASPIRIN 81 MG PO SCH (16:52)
[2017-05-17] MEDS: MELOXICAM 7.5 MG TAB PO SCH ×2 (20:01→20:48)
[2017-05-18] MEDS: LEVOTHYROXINE 50 MCG TAB PO SCH ×2 (06:15→08:12)
[2017-05-18 07:41] VITALS: BP 129/78; PULSE 67; RESP 19; TEMP 98.4
[2017-05-18] MEDS: PANTOPRAZOLE 40 MG/10 ML VIAL IV SCH (08:11)
[2017-05-18] MEDS: SENNOSIDES 8.6 MG TAB PO SCH (08:12)
[2017-05-18] MEDS: LISINOPRIL 20 MG TAB PO SCH (08:12)
[2017-05-18] MEDS: amLODIPine 5 MG TAB PO SCH (08:12)
[2017-05-18] MEDS: QUEtiapine 50 MG TAB PO SCH (08:12)
[2017-05-18] MEDS: METOPROLOL SUCCINATE (ER) 25 MG TAB.ER.24H PO SCH (08:13)
[2017-05-18] MEDS: LORazepam 0.5 MG TAB PO SCH (08:34)
[2017-05-18] MEDS ORDERED: ENOXAPARIN 30 MG/0.3 ML SYRINGE SQ SCH (09:00)
[2017-05-18 09:23] LABS: Basophils % (A) 0 %; CH 27.8; CHCM 31.8; Eosinophils # (A) 0.4 k/uL (0-0.7); Eosinophils % (A) 6 %; HCT 42.4 % (34.0-46.0); HDW 2.52; HGB 13.2 gm/dL (11.4-16.0); Luc % (Auto) 2; Lymphocytes # (A) 1.4 k/uL (1.0-4.8); Lymphocytes % (A) 21 %; MCH 27.4 pg (25.0-35.0); MCHC 31.3 g/dL (31.0-37.0); MCV 87.5 fL (80.0-100.0); Monocytes # (A) 0.3 k/uL (0-1.0); Monocytes % (A) 5 %; Neutrophils # (A) 4.5 k/uL (1.3-7.7); Neutrophils % (A) 68 %; RBC 4.84 m/uL (3.80-5.40); WBC 6.7 k/uL (3.8-10.6); WBC (Perox) 7.01
[2017-05-18 09:32] LABS: Anion Gap 10 mmol/L; Blood Urea Nitrogen 18 mg/dL (7-17); Calcium 9.2 mg/dL (8.4-10.2); Carbon Dioxide 20 mmol/L (22-30); Chloride 112 mmol/L (98-107); Glucose 113 mg/dL (74-99); Non-African American GFR(MDRD) 53 (>60 ml/min/1.73 sqM); Potassium 4.2 mmol/L (3.5-5.1); Sodium 142 mmol/L (137-145)
--- NOTE | 2017-05-18 12:17 | DS ---
DISCHARGE SUMMARY DATE OF ADMISSION: 05/16/2017 DATE OF DISCHARGE: 05/18/2017 FINAL DIAGNOSES: 1. Acute urinary tract infection and pyelonephritis from Klebsiella oxytoca causing acute delirium present on admission. 2. Alzheimer's dementia late onset type. 3. Hiatal hernia. 4. Hyperlipidemia. 5. Essential hypertension. 6. Hypothyroidism. 7. Chronic obstructive pulmonary disease in an ex-smoker. HOSPITAL COURSE: This patient presents with abdominal pain, felt to be from pyelonephritis. Urine culture did come back positive for Klebsiella oxytoca. Responded well to antibiotics in the form of IV ceftriaxone. The patient was doing much better by the time of discharge, answering questions, tolerating her diet. ON EXAMINATION: Abdomen: Soft, nontender. Patient is afebrile with normal white count. DISCHARGE MEDICATIONS: 1. Lotensin 40 mg p.o. daily. 2. Norvasc 5 mg p.o. daily. 3. Tylenol 650 mg q.8 p.r.n. 4. Dulcolax 10 mg rectal daily p.r.n. 5. Pepcid 20 mg p.o. daily. 6. Claritin 10 mg p.o. daily. 7. Toprol XL 12.5 p.o. daily. 8. Ventolin 2.5 q.6 p.r.n. 9. Lac-Hydrin 12% topical daily p.r.n. 10.Aspirin 81 mg p.o. daily. 11.Iron 325 p.o. daily. 12.Synthroid 50 mcg p.o. daily. 13.Imodium A-D 4 mg p.o. b.i.d. p.r.n. 14.Mobic 15 mg p.o. q.h.s. 15.Fleet Adult daily p.r.n. 16.Seroquel 50 mg p.o. t.i.d. 17.Senna 8.6 mg p.o. b.i.d. 18.Guaifenesin 200 mg p.o. q.4 p.r.n. 19.Ceftin 500 mg p.o. b.i.d., 10 tablets. 20.Ativan 0.25 p.o. b.i.d. 21.Ativan 0.5 p.o. q.8 p.r.n. DISPOSITION: [place]. Follow up with Dr. Franks. LABS: CBC, BMP in 3 days. ON EXAMINATION: LUNGS: Slightly decreased breath sounds. ABDOMEN: Soft, nontender. Patient is answering questions. MMODL / IJN: [id number] /
[2017-05-18] MEDS: cefTRIAXone IN SWFI 1,000 MG/10 ML SYRINGE IVP SCH (12:28)
[2017-05-19] MEDS ORDERED: PANTOPRAZOLE 40 MG TABLET PO SCH (07:30)
== END 2017-05-18 14:07 | DRG 690 ==
LOC: EC 11:26 → 4MS4W 15:26
PROVIDERS: ADMIT Hospitalist; ATTEND Hospitalist
DX: N12 Tubulo-interstitial nephritis, not specified as acute or chronic (principal); G30.1 Alzheimer's disease with late onset; K26.9 Duodenal ulcer, unspecified as acute or chronic, without hemorrhage or perforation; B96.1 Klebsiella pneumoniae [K. pneumoniae] as the cause of diseases classified elsewhere; F05 Delirium due to known physiological condition; F02.80 Dementia in other diseases classified elsewhere, unspecified severity, without behavioral disturbance, psychotic disturbance, mood disturbance, and anxiety; J43.9 Emphysema, unspecified; I10 Essential (primary) hypertension; E03.9 Hypothyroidism, unspecified; E78.5 Hyperlipidemia, unspecified; K21.9 Gastro-esophageal reflux disease without esophagitis; K44.9 Diaphragmatic hernia without obstruction or gangrene; N83.201 Unspecified ovarian cyst, right side; R32 Unspecified urinary incontinence; Z74.01 Bed confinement status; Z79.82 Long term (current) use of aspirin; Z99.3 Dependence on wheelchair; Z79.899 Other long term (current) drug therapy; Z82.49 Family history of ischemic heart disease and other diseases of the circulatory system; Z83.3 Family history of diabetes mellitus; Z87.891 Personal history of nicotine dependence
CPT/HCPCS: 36415; 74177; 80048; 80053; 81001; 82150; 83605; 83690; 85025; 85610; 85730; 87040; 93005; 94760; 96361; 96374; 96375; 99285